=== PATIENT | male | born 1955 | race Caucasian/White ===

== ENCOUNTER 2016-12-21 19:39 | Emergency (ER) | payer MEDICARE ==
[2016-12-21 20:44] LABS: BASOPHIL 0.2 % (0-2); EOSINOPHIL 1.5 % (0-5); HCT 34.6 % (42.0-52.0); HGB 11.5 g/dl (13.2-18.0); LYMPHOCYTE 21.1 % (15-48); MCHC 33.2 g/dL (32.0-36.0); MCV 93.3 fL (78.0-100.0); MPV 9.4 fL (6.0-9.5); NEUTROPHIL 61.2 % (41-80); PLT 293 K/uL (150-400); RBC 3.71 M/uL (4.70-6.00); RDW 16.1 % (11.5-14.0); WBC 5.8 K/uL (4.0-10.5)
[2016-12-21 20:45] LABS: BILIRUBIN 1+ mg/dL (NEGATIVE); BLOOD NEGATIVE Ery/uL (NEGATIVE); CLARITY CLEAR (CLEAR); COLOR YELLOW (YELLOW); GLUCOSE (U) NORMAL (NORMAL); KETONE (U) TRACE mg/dL (NEGATIVE); LEUKOCYTES NEGATIVE Leu/uL (NEGATIVE); NITRITE NEGATIVE (NEGATIVE); PROTEIN TRACE (LOW) mg/dL (NEGATIVE); pH 6.5 (5.0-9.0)
[2016-12-21 20:56] LABS: BACTERIA 1+
[2016-12-21 20:57] LABS: MUCOUS LARGE
[2016-12-21 21:05] LABS: ALBUMIN 2.6 g/dL (3.4-4.8); BILIRUBIN - TOTAL 0.3 mg/dL (0.1-1.0); CKMB 1.54 ng/mL (0.97-4.94); CREATININE 0.4 mg/dL (0.7-1.2); GLOBULIN (CALCULATION) 3.3 g/dL (2.2-4.2); POTASSIUM 3.5 mmol/L (3.5-5.1); TOTAL PROTEIN 5.9 g/dL (6.4-8.3); TROPONIN T < 0.010 ng/mL
[2016-12-21 21:16] LABS: FT4 (FREE T4) 1.13 ng/dL (0.93-1.70); TSH (THYROID STIM HORMONE) 1.08 uIU/mL (0.270-4.200)
== END 2016-12-22 01:00 | disposition home or self-care (01) ==
LOC: FER 19:39
PROVIDERS: Emergency Medicine Emergency Medical Services
DX: J18.9 Pneumonia, unspecified organism (principal); C34.90 Malignant neoplasm of unspecified part of unspecified bronchus or lung; C78.7 Secondary malignant neoplasm of liver and intrahepatic bile duct; R51 Headache; J98.11 Atelectasis; I48.91 Unspecified atrial fibrillation; E86.9 Volume depletion, unspecified; R82.90 Unspecified abnormal findings in urine; Z88.8 Allergy status to other drugs, medicaments and biological substances; Z86.73 Personal history of transient ischemic attack (TIA), and cerebral infarction without residual deficits; Z86.718 Personal history of other venous thrombosis and embolism; Z85.118 Personal history of other malignant neoplasm of bronchus and lung; Z91.041 Radiographic dye allergy status
CPT/HCPCS: 36415; 70450; 71010; 71275; 80053; 81001; 82150; 82550; 82553; 83605; 83690; 84439; 84443; 84484; 85025; 87088; 93005; J2930; Q9967